=== PATIENT | male | born 1950 | race Caucasian/White ===

== ENCOUNTER 2018-01-19 16:26 | Emergency (ER) | payer OTHER ==
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
[2018-01-19 17:07] LABS: PLATELET COUNT 146 10^3/uL (150-400)
[2018-01-19] MEDS ORDERED: OXYCODONE/APAP 5/325 TAB PO ONE (18:16)
[2018-01-19 19:29] VITALS: BP 132/82
== END 2018-01-19 19:44 | disposition home or self-care (01) ==
DX: S00.03XA Contusion of scalp, initial encounter (principal); S00.01XA Abrasion of scalp, initial encounter; S80.02XA Contusion of left knee, initial encounter; I10 Essential (primary) hypertension; E78.5 Hyperlipidemia, unspecified; N18.9 Chronic kidney disease, unspecified; V47.6XXA Car passenger injured in collision with fixed or stationary object in traffic accident, initial encounter; Y92.411 Interstate highway as the place of occurrence of the external cause